=== PATIENT | male | born 1990 | race Caucasian/White ===

== ENCOUNTER 2021-01-14 19:22 | Emergency (ER) | payer MEDICAID, OTHER ==
[~2021-01-14] VITALS: Ht 182.9 cm; Wt 108.9 kg
[2021-01-14] MEDS ORDERED: PANTOPRAZOLE 40 MG/10 ML VIAL INJ IV STA (20:29)
[2021-01-14] MEDS ORDERED: ONDANSETRON HCL 4 MG/2 ML VIAL IV ONE ×2 (20:30)
[2021-01-14] MEDS ORDERED: KETOROLAC TROMETH 30 MG/ML 1ML VIAL IV ONE ×2 (20:30→23:45)
[2021-01-14 20:36] VITALS: BP 114/67
[2021-01-14 22:26] LABS: Basophils # (auto) 0.1 10 ^3/uL (0-0.2); Basophils % (auto) 0.6 % (0.0-2.0); Eosinophils # (auto) 0.1 10 ^3/uL (0-0.8); Eosinophils % (auto) 0.7 % (0.0-7.0); Hematocrit 44.2 % (41.0-53.0); Hemoglobin 15.4 g/dL (13.5-17.5); Lymphocytes # (auto) 1.3 10 ^3/uL (0.4-5.4); Lymphocytes % (auto) 12.7 % (10.0-50.0); Mean Corpuscular Hemoglobin 30.3 pg (28.0-32.0); Mean Corpuscular Hgb Conc. 34.7 g/dL (32.0-36.0); Mean Corpuscular Volume 87.3 fL (80.0-100.0); Monocytes # (auto) 0.5 10 ^3/uL (0-1.3); Neutrophils # (auto) 8.4 10 ^3/uL (1.6-8.6); Nucleated Red Blood Cells % 0.1 %; Platelet Count (auto) 270 10^3/uL (140-450); Red Blood Cells 5.06 10^6/uL (4.5-5.90); Red Cell Distribution Width 13.2 % (11.8-14.3); White Blood Cell 10.4 10^3/uL (4.4-10.8)
[2021-01-14 22:48] LABS: Potassium 4.3 mmol/L (3.5-5.1)
[2021-01-14 22:57] LABS: Albumin 3.9 g/dL (3.4-5.0); BUN/Creatinine Ratio 25.6; Bilirubin, Total 0.8 mg/dL (0.2-1.0); Calcium 9.2 mg/dL (8.5-10.1); Total Protein 7.8 g/dL (6.4-8.2)
[2021-01-15] MEDS ORDERED: PROMETHAZINE HCL 25 MG/ML 1ML ONE (00:22)
[2021-01-15] MEDS ORDERED: PROMETHAZINE HCL 25 MG/ML 1ML IM ONE (00:30)
[2021-01-15 01:00] LABS: Alcohol, Urine < 3.0 mg/dL (0-10); Amphetamine Screen, Urine NEGATIVE (NEGATIVE); Barbiturate Scree,Urine NEGATIVE (NEGATIVE); Benzodiazephine Screen, Urine NEGATIVE (NEGATIVE); Cannabinoid Screen, Urine POSITIVE (NEGATIVE); Cocaine Screen, Urine NEGATIVE (NEGATIVE); Opiate Scree,Urine NEGATIVE (NEGATIVE); Phencyclidine Screen, Urine NEGATIVE (NEGATIVE); Urine Bacteria FEW /hpf (None Seen); Urine Blood Negative /uL (Negative); Urine Mucus MODERATE (None Seen); Urine Specific Gravity 1.043 (1.001-1.035); Urine WBC 3 /hpf (0 - 3)
== END 2021-01-15 00:36 | disposition left against medical advice (07) ==
LOC: ER 19:22 → EDBD 19:22 → ER 01-15 00:36
DX: R10.9 Unspecified abdominal pain (principal); R42 Dizziness and giddiness; R11.10 Vomiting, unspecified
CPT/HCPCS: 36415; 74176; 80053; 80307; 81001; 82150; 83690; 85025; 96372; 96374; 96375; 99284; C9113; J1885; J2405; J2550; J7030

== ENCOUNTER 2022-03-31 02:33 | Inpatient (IN) | payer MEDICAID ==
[~2022-03-31] VITALS: Ht 172.7 cm; Wt 172.0 kg
[2022-03-31] MEDS ORDERED: METOCLOPRAMIDE HCL 5MG/ml INJ 2ml VIAL IV ONE (03:45)
[2022-03-31 04:12] LABS: Basophils # (auto) 0 10 ^3/uL (0-0.2); Basophils % (auto) 0.4 % (0.0-2.0); Eosinophils # (auto) 0 10 ^3/uL (0-0.8); Hemoglobin 14.1 g/dL (13.5-17.5); Lymphocytes # (auto) 0.6 10 ^3/uL (0.4-5.4); Lymphocytes % (auto) 5.3 % (10.0-50.0); Mean Corpuscular Hemoglobin 30.4 pg (28.0-32.0); Mean Corpuscular Hgb Conc. 35.4 g/dL (32.0-36.0); Mean Corpuscular Volume 85.8 fL (80.0-100.0); Monocytes # (auto) 0.2 10 ^3/uL (0-1.3); Monocytes % (auto) 1.8 % (0.0-12.0); Neutrophils # (auto) 10.7 10 ^3/uL (1.6-8.6); Neutrophils % (auto) 92.5 % (37.0-80.0); Nucleated Red Blood Cells % 0.1 %; Red Blood Cells 4.66 10^6/uL (4.5-5.90); Red Cell Distribution Width 13.3 % (11.8-14.3); White Blood Cell 11.6 10^3/uL (4.4-10.8)
[2022-03-31 04:27] LABS: BUN/Creatinine Ratio 12.9; Calcium 9.4 mg/dL (8.5-10.1); Potassium 3.7 mmol/L (3.5-5.1)
[2022-03-31 04:29] LABS: Bilirubin, Total 1.1 mg/dL (0.2-1.0); Total Protein 7.7 g/dL (6.4-8.2)
[2022-03-31] MEDS ORDERED: SODIUM CHLORIDE 0.9% 1,000 ML IV ONE ×2 (07:00)
[2022-03-31] MEDS ORDERED: MORPHINE SULFATE 4 MG/ML SYR/VIAL IV ONE (07:00)
[2022-03-31] MEDS ORDERED: ONDANSETRON HCL 4 MG/2 ML VIAL IV ONE (07:00)
[2022-03-31 07:46] LABS: Urine Bacteria NONE SEEN /hpf (None Seen); Urine Blood Negative /uL (Negative); Urine Hyaline Cast FEW /lpf (0 - 2); Urine Mucus MODERATE (None Seen); Urine Specific Gravity 1.038 (1.001-1.035); Urine WBC 2 /hpf (0 - 3)
[2022-03-31] MEDS ORDERED: PANTOPRAZOLE 40 MG/10 ML VIAL INJ IV ONE (10:30)
[2022-03-31] MEDS ORDERED: NICOTINE 7MG/24HR TOPICAL PATCH TD ONE (10:30)
[2022-03-31] MEDS ORDERED: cefTRIAXone 1GM/50ML D5W 50 ML IV ONE (10:30)
[2022-03-31] MEDS ORDERED: hydrALAZINE HCL 20 MG/ML VL IV PRN (10:30)
[2022-03-31 11:19] LABS: Amphetamine Screen, Urine NEGATIVE (NEGATIVE); Barbiturate Scree,Urine NEGATIVE (NEGATIVE); Benzodiazephine Screen, Urine NEGATIVE (NEGATIVE); Cannabinoid Screen, Urine POSITIVE (NEGATIVE); Cocaine Screen, Urine NEGATIVE (NEGATIVE); Phencyclidine Screen, Urine NEGATIVE (NEGATIVE)
[2022-03-31 11:26] LABS: Opiate Scree,Urine NEGATIVE (NEGATIVE)
[2022-03-31 11:48] LABS: Cholesterol 125 mg/dL (< 200); HDL Cholesterol 35 mg/dL (40-59); LDL Cholesterol 87 mg/dL (< 100); Triglycerides 47 mg/dL (< 150)
[2022-03-31] MEDS: SODIUM CHLORIDE 0.9% 1,000 ML IV SCH ×2 (11:49→18:50)
[2022-03-31] MEDS: ONDANSETRON HCL 4 MG/2 ML VIAL IV PRN (12:10)
[2022-03-31] MEDS: metroNIDAZOLE 500MG/100ML 100 ML IV SCH ×2 (15:43→21:18)
[2022-03-31 17:00] VITALS: BP 123/51
[2022-03-31] MEDS ORDERED: DICY20TA PO (17:45)
[2022-03-31] MEDS ORDERED: PANT40T PO (17:45)
[2022-03-31 20:00] VITALS: BP 108/55
[2022-03-31 22:00] VITALS: BP 108/55
[2022-04-01] MEDS: SODIUM CHLORIDE 0.9% 1,000 ML IV SCH ×3 (02:11→16:24)
[2022-04-01] MEDS: ONDANSETRON HCL 4 MG/2 ML VIAL IV PRN ×3 (03:56→19:07)
[2022-04-01] MEDS: MORPHINE SULFATE INJ 2 MG/ml SYRG IV PRN (03:56)
[2022-04-01 05:00] VITALS: BP 110/60
[2022-04-01] MEDS: metroNIDAZOLE 500MG/100ML 100 ML IV SCH (05:23)
[2022-04-01] MEDS: SUCRALFATE 1 GM TAB PO SCH ×4 (05:24→22:51)
[2022-04-01] MEDS ORDERED: KETOROLAC TROMETH 30 MG/ML 1ML VIAL IV ONE (06:00)
[2022-04-01] MEDS ORDERED: PROMETHAZINE HCL 25 MG/ML 1ML IV ONE (06:00)
[2022-04-01 07:05] LABS: Basophils # (auto) 0 10 ^3/uL (0-0.2); Basophils % (auto) 0.3 % (0.0-2.0); Eosinophils # (auto) 0 10 ^3/uL (0-0.8); Eosinophils % (auto) 0.2 % (0.0-7.0); Hematocrit 38.6 % (41.0-53.0); Hemoglobin 13.6 g/dL (13.5-17.5); Lymphocytes # (auto) 1.1 10 ^3/uL (0.4-5.4); Mean Corpuscular Hemoglobin 30.5 pg (28.0-32.0); Mean Corpuscular Hgb Conc. 35.1 g/dL (32.0-36.0); Mean Corpuscular Volume 86.9 fL (80.0-100.0); Monocytes # (auto) 0.5 10 ^3/uL (0-1.3); Monocytes % (auto) 6.5 % (0.0-12.0); Neutrophils # (auto) 6.2 10 ^3/uL (1.6-8.6); Nucleated Red Blood Cells % 0.1 %; Red Blood Cells 4.44 10^6/uL (4.5-5.90); Red Cell Distribution Width 13.6 % (11.8-14.3); White Blood Cell 7.9 10^3/uL (4.4-10.8)
[2022-04-01 07:17] LABS: Albumin 3.7 g/dL (3.4-5.0); Calcium 8.6 mg/dL (8.5-10.1); Potassium 3.4 mmol/L (3.5-5.1)
[2022-04-01 07:19] LABS: BUN/Creatinine Ratio 13.3
[2022-04-01 08:26] VITALS: BP 108/55
[2022-04-01] MEDS ORDERED: cefTRIAXone 1GM/50ML D5W 50 ML IV SCH (09:00)
[2022-04-01 09:22] VITALS: BP 141/73
[2022-04-01] MEDS: NICOTINE 7MG/24HR TOPICAL PATCH TD SCH (09:55)
[2022-04-01] MEDS: PANTOPRAZOLE 40 MG/10 ML VIAL INJ IV SCH (09:55)
[2022-04-01] MEDS ORDERED: traMADol HCL 50 MG TAB PO PRN (12:30)
[2022-04-01] MEDS ORDERED: POTASSIUM CHLORIDE 20 MEQ, LIDOCAINE 1% (LOCAL ANESTH.) 2 ML in SODIUM CHL 0.9% 100 ML IV ONE (12:45)
[2022-04-01 13:00] VITALS: BP 152/81
[2022-04-01 17:00] VITALS: BP 144/96
[2022-04-01 22:00] VITALS: BP 111/66
[2022-04-01] MEDS: METOCLOPRAMIDE HCL 5MG/ml INJ 2ml VIAL IV PRN (22:42)
[2022-04-02 01:53] LABS: Calcium 8.5 mg/dL (8.5-10.1); Magnesium 2.2 mg/dL (1.6-2.6); Potassium 3.9 mmol/L (3.5-5.1)
[2022-04-02 01:56] LABS: BUN/Creatinine Ratio 12.5
[2022-04-02] MEDS: SODIUM CHLORIDE 0.9% 1,000 ML IV SCH ×2 (03:30→17:28)
[2022-04-02] MEDS: ONDANSETRON HCL 4 MG/2 ML VIAL IV PRN ×3 (04:29→20:48)
[2022-04-02] MEDS: MORPHINE SULFATE INJ 2 MG/ml SYRG IV PRN ×3 (04:56→20:56)
[2022-04-02] MEDS: SUCRALFATE 1 GM TAB PO SCH ×4 (06:15→20:52)
[2022-04-02 07:09] LABS: BUN/Creatinine Ratio 12.3; Calcium 8.3 mg/dL (8.5-10.1); Potassium 3.5 mmol/L (3.5-5.1)
[2022-04-02 07:30] LABS: INR 1.12 (0.9-1.15); Partial Thromboplastin Time 26.6 sec (23.6-33.0)
[2022-04-02] MEDS: PANTOPRAZOLE 40 MG/10 ML VIAL INJ IV SCH (08:00)
[2022-04-02] MEDS: METOCLOPRAMIDE HCL 5MG/ml INJ 2ml VIAL IV PRN (08:00)
[2022-04-02] MEDS: NICOTINE 7MG/24HR TOPICAL PATCH TD SCH (08:04)
[2022-04-02] MEDS ORDERED: OPTISON 3ml Vial for INJ IV ONE (13:32)
[2022-04-02 21:11] VITALS: BP 141/86
[2022-04-03] MEDS: SODIUM CHLORIDE 0.9% 1,000 ML IV SCH ×2 (04:30→17:47)
[2022-04-03 05:00] VITALS: BP 134/81
[2022-04-03] MEDS: SUCRALFATE 1 GM TAB PO SCH ×4 (05:16→21:16)
[2022-04-03] MEDS: PANTOPRAZOLE 40 MG/10 ML VIAL INJ IV SCH (09:22)
[2022-04-03] MEDS: ONDANSETRON HCL 4 MG/2 ML VIAL IV PRN ×2 (09:22→17:58)
[2022-04-03] MEDS: NICOTINE 7MG/24HR TOPICAL PATCH TD SCH (09:23)
[2022-04-03] MEDS ORDERED: SODIUM CHLORIDE LOCK 10 ML ONE (11:59)
[2022-04-03] MEDS ORDERED: MIDAZOLAM HCL 5 MG/ML-1ML VIAL ONE (11:59)
[2022-04-03] MEDS ORDERED: LIDOCAINE VISCOUS 2% 15ML UD ONE (11:59)
[2022-04-03] MEDS ORDERED: diphenhdrAMINE HCL 50 MG/1 ML VL ONE (11:59)
[2022-04-03] MEDS ORDERED: fentaNYL CITRATE 100 MCG/2 ML VL ONE ×2 (11:59→13:13)
[2022-04-03] MEDS ORDERED: MIDAZOLAM HCL 2MG/2ML 2ml VIAL (1mg/ml) ONE (13:13)
[2022-04-03] MEDS ORDERED: PROPOFOL 10 MG/ML 20 ML IV ONE (13:30)
[2022-04-03] MEDS ORDERED: ONDANSETRON HCL 4 MG/2 ML VIAL IV PRN (13:45)
[2022-04-03] MEDS: PANTOPRAZOLE 40 MG TAB PO SCH (21:16)
[2022-04-03 21:41] VITALS: BP 155/75
[2022-04-04 05:00] VITALS: BP 118/52
[2022-04-04] MEDS: SUCRALFATE 1 GM TAB PO SCH ×2 (06:29→11:24)
[2022-04-04 08:58] VITALS: BP 114/50
[2022-04-04] MEDS: NICOTINE 7MG/24HR TOPICAL PATCH TD SCH (09:23)
[2022-04-04] MEDS: PANTOPRAZOLE 40 MG TAB PO SCH (09:24)
[2022-04-04] MEDS: SODIUM CHLORIDE 0.9% 1,000 ML IV SCH (09:24)
[2022-04-04 12:54] VITALS: BP 136/83
[2022-04-04] MEDS ORDERED: PANT40T PO (14:16)
[2022-04-04] MEDS ORDERED: SUCR1TAB PO (14:16)
[2022-04-04 15:04] VITALS: BP 136/83
== END 2022-04-04 16:47 | disposition home or self-care (01) | DRG 241 ==
LOC: ER 02:33 → EDBD 02:33 → WEST WING 10:20 → TELE-WESTW 04-02 01:00
PROVIDERS: ADMIT Registered Nurse; ATTEND Internal Medicine
PROC: 0DB68ZX Excision of Stomach, Via Natural or Artificial Opening Endoscopic, Diagnostic (ICD-10-PCS; 2022-04-03)
PROC: 0DB38ZX Excision of Lower Esophagus, Via Natural or Artificial Opening Endoscopic, Diagnostic (ICD-10-PCS; 2022-04-03)
PROC: 0DB98ZX Excision of Duodenum, Via Natural or Artificial Opening Endoscopic, Diagnostic (ICD-10-PCS; principal; 2022-04-03 13:09)
DX: K29.70 Gastritis, unspecified, without bleeding (principal); K76.0 Fatty (change of) liver, not elsewhere classified; Z68.43 Body mass index [BMI] 50.0-59.9, adult; K22.10 Ulcer of esophagus without bleeding; D72.829 Elevated white blood cell count, unspecified; F12.90 Cannabis use, unspecified, uncomplicated; E66.01 Morbid (severe) obesity due to excess calories; F17.210 Nicotine dependence, cigarettes, uncomplicated; F41.9 Anxiety disorder, unspecified; I10 Essential (primary) hypertension; K44.9 Diaphragmatic hernia without obstruction or gangrene; K21.9 Gastro-esophageal reflux disease without esophagitis; R00.1 Bradycardia, unspecified; R80.9 Proteinuria, unspecified; Z20.822 Contact with and (suspected) exposure to COVID-19
CPT/HCPCS: 36415; 74176; 76705; 78226; 80048; 80053; 80061; 80307; 81001; 82962; 83036; 83690; 83735; 84484; 85025; 85610; 85730; 93005; 93306; 96361; 96365; 96375; 96376; C9113; G0378; J0696; J1885; J2001; J2250; J2405; J2704; J3490; Q9956

== ENCOUNTER 2022-04-16 13:31 | Emergency (ER) | payer MEDICAID ==
[~2022-04-16] VITALS: Ht 172.7 cm; Wt 170.6 kg
[~2022-04-16 13:31] MED LIST: DICY20TA PO; PANT40T PO; SUCR1TAB PO
[2022-04-16 14:19] LABS: Urine Bacteria NONE SEEN /hpf (None Seen); Urine Blood Negative /uL (Negative); Urine Hyaline Cast FEW /lpf (0 - 2); Urine Mucus FEW (None Seen); Urine Specific Gravity 1.033 (1.001-1.035); Urine WBC 1 /hpf (0 - 3)
[2022-04-16 14:55] LABS: Basophils # (auto) 0.2 10 ^3/uL (0-0.2); Basophils % (auto) 2.2 % (0.0-2.0); Eosinophils # (auto) 0 10 ^3/uL (0-0.8); Eosinophils % (auto) 0.5 % (0.0-7.0); Hematocrit 40.9 % (41.0-53.0); Hemoglobin 14.3 g/dL (13.5-17.5); Lymphocytes # (auto) 0.6 10 ^3/uL (0.4-5.4); Lymphocytes % (auto) 6.1 % (10.0-50.0); Mean Corpuscular Hemoglobin 30.3 pg (28.0-32.0); Mean Corpuscular Hgb Conc. 34.8 g/dL (32.0-36.0); Mean Corpuscular Volume 86.8 fL (80.0-100.0); Monocytes # (auto) 0.4 10 ^3/uL (0-1.3); Monocytes % (auto) 4.6 % (0.0-12.0); Neutrophils % (auto) 86.6 % (37.0-80.0); Nucleated Red Blood Cells % 0.3 %; Red Blood Cells 4.71 10^6/uL (4.5-5.90); Red Cell Distribution Width 13.3 % (11.8-14.3); White Blood Cell 9.2 10^3/uL (4.4-10.8)
[2022-04-16 15:10] LABS: Albumin 3.9 g/dL (3.4-5.0); Calcium 8.6 mg/dL (8.5-10.1); Potassium 3.9 mmol/L (3.5-5.1)
[2022-04-16 15:13] LABS: BUN/Creatinine Ratio 21.1
[2022-04-16 15:16] LABS: Bilirubin, Total 0.7 mg/dL (0.2-1.0); Total Protein 7.1 g/dL (6.4-8.2)
[2022-04-16] MEDS ORDERED: ONDANSETRON ODT 4 MG TAB PO ONE (16:15)
[2022-04-16] MEDS ORDERED: HYDROcodone-ACET 5/325MG TAB PO ONE (16:15)
[2022-04-16 17:19] VITALS: BP 126/76
== END 2022-04-16 17:21 | disposition home or self-care (01) ==
LOC: ER 13:31
DX: K42.9 Umbilical hernia without obstruction or gangrene (principal); R11.2 Nausea with vomiting, unspecified; F17.210 Nicotine dependence, cigarettes, uncomplicated; I10 Essential (primary) hypertension
CPT/HCPCS: 36415; 74176; 80053; 81001; 83690; 85025; 93005; 99285; Q0162

== ENCOUNTER 2022-04-23 13:38 | Emergency (ER) | payer MEDICAID ==
[~2022-04-23] VITALS: Ht 172.7 cm; Wt 163.3 kg
[2022-04-23 14:44] LABS: Basophils # (auto) 0.2 10 ^3/uL (0-0.2); Basophils % (auto) 1.7 % (0.0-2.0); Eosinophils # (auto) 0.1 10 ^3/uL (0-0.8); Eosinophils % (auto) 0.6 % (0.0-7.0); Hematocrit 39.9 % (41.0-53.0); Hemoglobin 14.1 g/dL (13.5-17.5); Lymphocytes # (auto) 0.8 10 ^3/uL (0.4-5.4); Lymphocytes % (auto) 8.8 % (10.0-50.0); Mean Corpuscular Hemoglobin 30.6 pg (28.0-32.0); Mean Corpuscular Hgb Conc. 35.3 g/dL (32.0-36.0); Mean Corpuscular Volume 86.8 fL (80.0-100.0); Monocytes # (auto) 0.4 10 ^3/uL (0-1.3); Neutrophils # (auto) 7.6 10 ^3/uL (1.6-8.6); Neutrophils % (auto) 84.9 % (37.0-80.0); Red Cell Distribution Width 13.4 % (11.8-14.3)
[2022-04-23 15:11] LABS: Albumin 3.5 g/dL (3.4-5.0); BUN/Creatinine Ratio 20.3; Bilirubin, Total 0.5 mg/dL (0.2-1.0); Calcium 8.6 mg/dL (8.5-10.1); Total Protein 7.1 g/dL (6.4-8.2)
[2022-04-23] MEDS ORDERED: SODIUM CHLORIDE 0.9% 1,000 ML IV ONE (17:30)
[2022-04-23 21:09] VITALS: BP 124/68
== END 2022-04-23 22:38 | disposition left against medical advice (07) ==
LOC: EDBD 13:38 → ER 13:38
DX: R10.13 Epigastric pain (principal); I10 Essential (primary) hypertension; F17.210 Nicotine dependence, cigarettes, uncomplicated; Z79.899 Other long term (current) drug therapy
CPT/HCPCS: 36415; 71045; 80053; 83690; 84484; 85025; 93005; 99285; J7030

== ENCOUNTER 2022-04-25 16:55 | Inpatient (IN) | payer MEDICAID ==
[~2022-04-25] VITALS: Ht 177.8 cm; Wt 171.0 kg
[2022-04-25] MEDS ORDERED: SODIUM CHLORIDE 0.9% 1,000 ML IV ONE (17:15)
[2022-04-25] MEDS ORDERED: fentaNYL CITRATE 100 MCG/2 ML VL IV ONE ×2 (17:15→19:30)
[2022-04-25] MEDS ORDERED: ONDANSETRON HCL 4 MG/2 ML VIAL IV ONE (17:15)
[2022-04-25 17:51] LABS: Basophils # (auto) 0.2 10 ^3/uL (0-0.2); Eosinophils # (auto) 0.1 10 ^3/uL (0-0.8); Eosinophils % (auto) 0.6 % (0.0-7.0); Hematocrit 40.7 % (41.0-53.0); Lymphocytes % (auto) 8.5 % (10.0-50.0); Mean Corpuscular Hgb Conc. 34.5 g/dL (32.0-36.0); Mean Corpuscular Volume 86.9 fL (80.0-100.0); Monocytes # (auto) 0.5 10 ^3/uL (0-1.3); Monocytes % (auto) 4.6 % (0.0-12.0); Neutrophils # (auto) 9.5 10 ^3/uL (1.6-8.6); Neutrophils % (auto) 84.3 % (37.0-80.0); Red Blood Cells 4.68 10^6/uL (4.5-5.90); Red Cell Distribution Width 13.5 % (11.8-14.3); White Blood Cell 11.3 10^3/uL (4.4-10.8)
[2022-04-25 18:16] LABS: Albumin 3.8 g/dL (3.4-5.0); BUN/Creatinine Ratio 15.2; Calcium 8.3 mg/dL (8.5-10.1); Potassium 3.4 mmol/L (3.5-5.1)
[2022-04-25 18:19] LABS: Bilirubin, Total 0.6 mg/dL (0.2-1.0); Total Protein 7.2 g/dL (6.4-8.2)
[2022-04-25] MEDS ORDERED: METOCLOPRAMIDE HCL 5MG/ml INJ 2ml VIAL IV ONE ×2 (19:30→23:45)
[2022-04-25 21:12] LABS: Urine Bacteria NONE SEEN /hpf (None Seen); Urine Blood Negative /uL (Negative); Urine Mucus FEW (None Seen); Urine Specific Gravity 1.028 (1.001-1.035); Urine WBC 2 /hpf (0 - 3)
[2022-04-25] MEDS ORDERED: cefTRIAXone 1GM/50ML D5W 50 ML IV ONE (22:15)
[2022-04-25] MEDS ORDERED: ACETAMINOPHEN 325 MG TAB PO PRN (22:15)
[2022-04-25] MEDS ORDERED: hydrALAZINE HCL 20 MG/ML VL IV PRN (22:15)
[2022-04-25] MEDS ORDERED: ONDANSETRON HCL 4 MG/2 ML VIAL IV PRN (22:15)
[2022-04-25] MEDS ORDERED: POTASSIUM CHL 20 Meq TABLET PO ONE (22:15)
[2022-04-25] MEDS ORDERED: DOCUSATE SOD 100 MG CAP PO PRN (22:15)
[2022-04-25] MEDS ORDERED: HYDROcodone-ACET 5/325MG TAB PO PRN (22:15)
[2022-04-25] MEDS ORDERED: FUROSEMIDE 40 MG/4 ML VIAL IV ONE (22:15)
[2022-04-25] MEDS ORDERED: MORPHINE SULFATE INJ 2 MG/ml SYRG IV PRN (22:30)
[2022-04-25] MEDS ORDERED: NITROGLYCERIN 0.4 MG SL TAB SL PRN (22:30)
[2022-04-25] MEDS: MORPHINE SULFATE INJ 2 MG/ml SYRG IV PRN (23:27)
[2022-04-26] VITALS (7 sets, daily range): BP systolic 107–139; BP diastolic 47–98
[2022-04-26] MEDS ORDERED: LORazepam 2MG/ML-1ML VIAL IV PRN (01:45)
[2022-04-26] MEDS: MORPHINE SULFATE INJ 2 MG/ml SYRG IV PRN (03:44)
[2022-04-26] MEDS: SODIUM CHLOR 0.9% PF (SALINE LOCK) 10ML VIAL/SYR IV SCH ×3 (04:31→21:37)
[2022-04-26 07:53] LABS: Hematocrit 41.6 % (41.0-53.0); Hemoglobin 14.3 g/dL (13.5-17.5); Mean Corpuscular Hemoglobin 30.2 pg (28.0-32.0); Mean Corpuscular Hgb Conc. 34.5 g/dL (32.0-36.0); Mean Corpuscular Volume 87.5 fL (80.0-100.0); Red Blood Cells 4.75 10^6/uL (4.5-5.90); Red Cell Distribution Width 13.4 % (11.8-14.3); White Blood Cell 12.6 10^3/uL (4.4-10.8)
[2022-04-26 08:00] LABS: Basophils % (manual) 0 (0.0-2.0); Blast Cells 0; Eosinophils % (manual) 0 (0-7); Metamyelocytes % 0; Myelocytes % 0; Promyelocytes % 0; Reactive Lymphocytes 0
[2022-04-26 08:11] LABS: Albumin 3.8 g/dL (3.4-5.0); Calcium 8.5 mg/dL (8.5-10.1); Potassium 3.5 mmol/L (3.5-5.1)
[2022-04-26 08:17] LABS: BUN/Creatinine Ratio 13.8; Bilirubin, Total 0.6 mg/dL (0.2-1.0); Total Protein 7.8 g/dL (6.4-8.2)
[2022-04-26 08:44] LABS: Band Neutrophils % (manual) 2; Lymphocytes % (manual) 8 (10.0-50.0); Monocytes % (manual) 2 (0-12)
[2022-04-26] MEDS: FUROSEMIDE 40 MG/4 ML VIAL IV SCH (09:19)
[2022-04-26] MEDS: PANTOPRAZOLE 40 MG/10 ML VIAL INJ IV SCH ×2 (09:19→21:37)
[2022-04-26] MEDS: cefTRIAXone 1GM/50ML D5W 50 ML IV SCH (09:25)
[2022-04-26] MEDS: HEPARIN SODIUM (PORCINE) 5000 UNITS/ML 1ML VIAL SC SCH ×2 (09:32→21:46)
[2022-04-26 12:26] LABS: Alcohol, Urine < 3.0 mg/dL (0-10); Amphetamine Screen, Urine NEGATIVE (NEGATIVE); Barbiturate Scree,Urine NEGATIVE (NEGATIVE); Benzodiazephine Screen, Urine NEGATIVE (NEGATIVE); Cannabinoid Screen, Urine POSITIVE (NEGATIVE); Cocaine Screen, Urine NEGATIVE (NEGATIVE); Opiate Scree,Urine NEGATIVE (NEGATIVE); Phencyclidine Screen, Urine NEGATIVE (NEGATIVE)
[2022-04-26] MEDS: SUCRALFATE 1 GM TAB PO SCH ×2 (17:02→21:37)
[2022-04-27 05:00] VITALS: BP 122/61
[2022-04-27] MEDS: SUCRALFATE 1 GM TAB PO SCH ×2 (05:49→12:13)
[2022-04-27] MEDS: SODIUM CHLOR 0.9% PF (SALINE LOCK) 10ML VIAL/SYR IV SCH (05:49)
[2022-04-27 09:00] VITALS: BP 123/62
[2022-04-27] MEDS: cefTRIAXone 1GM/50ML D5W 50 ML IV SCH (09:05)
[2022-04-27] MEDS: PANTOPRAZOLE 40 MG/10 ML VIAL INJ IV SCH (09:06)
[2022-04-27] MEDS: FUROSEMIDE 40 MG/4 ML VIAL IV SCH (09:06)
[2022-04-27] MEDS: HEPARIN SODIUM (PORCINE) 5000 UNITS/ML 1ML VIAL SC SCH (09:11)
[2022-04-27 11:39] VITALS: BP 123/62
== END 2022-04-27 12:56 | disposition home or self-care (01) | DRG 243 ==
LOC: ER 16:55 → EDBD 16:55 → OVERFLOW 22:20 → WEST WING 04-26 02:12
PROVIDERS: ADMIT Nurse Practitioner Family; ATTEND Family Medicine
DX: K20.90 Esophagitis, unspecified without bleeding (principal); K76.0 Fatty (change of) liver, not elsewhere classified; Z68.43 Body mass index [BMI] 50.0-59.9, adult; K21.9 Gastro-esophageal reflux disease without esophagitis; K31.84 Gastroparesis; D72.829 Elevated white blood cell count, unspecified; N39.0 Urinary tract infection, site not specified; E66.01 Morbid (severe) obesity due to excess calories; E87.6 Hypokalemia; I10 Essential (primary) hypertension; E86.0 Dehydration; F17.210 Nicotine dependence, cigarettes, uncomplicated; F41.9 Anxiety disorder, unspecified; R09.89 Other specified symptoms and signs involving the circulatory and respiratory systems; Z20.822 Contact with and (suspected) exposure to COVID-19
CPT/HCPCS: 36415; 71045; 74176; 80053; 80307; 81001; 82150; 83690; 83735; 84484; 85007; 85025; 85027; 87081; 87086; 93005; 96361; 96365; 96375; 96376; C9113; G0378; J0696; J2405

== ENCOUNTER 2022-05-21 05:14 | Inpatient (IN) | payer MEDICAID ==
[~2022-05-21] VITALS: Ht 180.3 cm; Wt 171.8 kg
[2022-05-21] MEDS ORDERED: METOCLOPRAMIDE HCL 5MG/ml INJ 2ml VIAL IV ONE (06:45)
[2022-05-21 06:53] LABS: Basophils # (auto) 0.1 10 ^3/uL (0-0.2); Basophils % (auto) 0.7 % (0.0-2.0); Eosinophils # (auto) 0.1 10 ^3/uL (0-0.8); Eosinophils % (auto) 0.7 % (0.0-7.0); Hemoglobin 15.4 g/dL (13.5-17.5); Mean Corpuscular Hemoglobin 30.8 pg (28.0-32.0); Mean Corpuscular Hgb Conc. 35.7 g/dL (32.0-36.0); Mean Corpuscular Volume 86.3 fL (80.0-100.0); Monocytes # (auto) 0.5 10 ^3/uL (0-1.3); Monocytes % (auto) 4.8 % (0.0-12.0); Neutrophils # (auto) 7.9 10 ^3/uL (1.6-8.6); Neutrophils % (auto) 82.8 % (37.0-80.0); Nucleated Red Blood Cells % 0.2 %; Red Blood Cells 4.98 10^6/uL (4.5-5.90); Red Cell Distribution Width 13.3 % (11.8-14.3); White Blood Cell 9.5 10^3/uL (4.4-10.8)
[2022-05-21 07:04] LABS: Albumin 4.1 g/dL (3.4-5.0); BUN/Creatinine Ratio 14.6; Calcium 9.1 mg/dL (8.5-10.1)
[2022-05-21 07:07] LABS: Bilirubin, Total 0.8 mg/dL (0.2-1.0); Total Protein 7.7 g/dL (6.4-8.2)
[2022-05-21] MEDS ORDERED: ONDANSETRON HCL 4 MG/2 ML VIAL IV ONE (09:45)
[2022-05-21] MEDS ORDERED: SODIUM CHLORIDE 0.9% 1,000 ML IV ONE (09:45)
[2022-05-21] MEDS ORDERED: MORPHINE SULFATE 4 MG/ML SYR/VIAL IV ONE (09:45)
[2022-05-21] MEDS ORDERED: LACTATED RINGER'S 1,000 ML IV ONE (11:00)
[2022-05-21] MEDS ORDERED: DEXTROSE (50%) 50ML SYRG IV PRN (11:00)
[2022-05-21] MEDS ORDERED: ACETAMINOPHEN 325 MG TAB PO PRN (11:00)
[2022-05-21] MEDS ORDERED: ONDANSETRON HCL 4 MG/2 ML VIAL IV PRN (11:00)
[2022-05-21] MEDS ORDERED: HYDROmorphone HCL 2 MG/ML VL/or syr IV PRN (11:00)
[2022-05-21] MEDS ORDERED: DOCUSATE SOD 100 MG CAP PO PRN (11:00)
[2022-05-21] MEDS: PIPERACILLIN-TAZOB 3.375GM 100 ML IV SCH ×3 (11:18→23:00)
[2022-05-21] MEDS ORDERED: DICYCLOMINE HCL PO SCH (12:00)
[2022-05-21] MEDS: SUCRALFATE 1 GM TAB PO SCH ×3 (12:22→21:13)
[2022-05-21] MEDS: DICYCLOMINE HCL 10 MG CAP PO SCH ×3 (12:25→21:13)
[2022-05-21] MEDS: ACCU-CHEK COMFORT CURVE STRIP VI SCH ×3 (12:33→23:37)
[2022-05-21] MEDS: InsuLIN REG 1unit/0.01ml Soln (100units/ml) SC SCH ×3 (12:33→23:38)
[2022-05-21] MEDS: SODIUM CHLOR 0.9% PF (SALINE LOCK) 10ML VIAL/SYR IV SCH ×2 (14:00→21:12)
[2022-05-21 18:30] VITALS: BP 125/59
[2022-05-21 21:32] VITALS: BP 131/70
[2022-05-21 22:07] VITALS: BP 131/70
[2022-05-22 04:33] VITALS: BP 104/40
[2022-05-22] MEDS: ACCU-CHEK COMFORT CURVE STRIP VI SCH ×2 (05:16→12:04)
[2022-05-22] MEDS: PIPERACILLIN-TAZOB 3.375GM 100 ML IV SCH ×4 (05:16→23:21)
[2022-05-22] MEDS: InsuLIN REG 1unit/0.01ml Soln (100units/ml) SC SCH ×2 (05:16→12:00)
[2022-05-22 09:00] VITALS: BP 131/72
[2022-05-22] MEDS: SUCRALFATE 1 GM TAB PO SCH ×4 (09:31→21:52)
[2022-05-22] MEDS: ENOXAPARIN SOD 40 MG/0.4 ML SYRINGE SC SCH (09:31)
[2022-05-22] MEDS ORDERED: PANTOPRAZOLE 40 MG TAB PO SCH (10:00)
[2022-05-22] MEDS: DICYCLOMINE HCL 10 MG CAP PO SCH ×3 (11:36→21:50)
[2022-05-22] MEDS: SODIUM CHLOR 0.9% PF (SALINE LOCK) 10ML VIAL/SYR IV SCH ×3 (12:04→21:50)
[2022-05-22 13:00] VITALS: BP 144/64
[2022-05-22] MEDS ORDERED: NICOTINE 21MG/24 HR TOPICAL PATCH TD ONE (15:45)
[2022-05-22 17:00] VITALS: BP 133/77
[2022-05-22] MEDS: HYDROcodone-ACET 5/325MG TAB PO PRN (20:04)
[2022-05-22 21:30] VITALS: BP 143/74
[2022-05-22] MEDS: PANTOPRAZOLE 40 MG/10 ML VIAL INJ IV SCH (21:50)
[2022-05-23 05:00] VITALS: BP 118/62
[2022-05-23] MEDS: PIPERACILLIN-TAZOB 3.375GM 100 ML IV SCH ×3 (05:45→10:04)
[2022-05-23] MEDS: DICYCLOMINE HCL 10 MG CAP PO SCH ×2 (06:00→11:08)
[2022-05-23] MEDS: SODIUM CHLOR 0.9% PF (SALINE LOCK) 10ML VIAL/SYR IV SCH ×2 (06:00→13:24)
[2022-05-23] MEDS: SUCRALFATE 1 GM TAB PO SCH ×2 (06:35→11:08)
[2022-05-23 07:28] LABS: Magnesium 2.1 mg/dL (1.6-2.6); Potassium 4.4 mmol/L (3.5-5.1)
[2022-05-23] MEDS: PANTOPRAZOLE 40 MG/10 ML VIAL INJ IV SCH (08:28)
[2022-05-23] MEDS: ENOXAPARIN SOD 40 MG/0.4 ML SYRINGE SC SCH (08:28)
[2022-05-23] MEDS: HYDROcodone-ACET 5/325MG TAB PO PRN (08:29)
[2022-05-23 09:00] VITALS: BP 132/67
[2022-05-23] MEDS ORDERED: NICOTINE 21MG/24 HR TOPICAL PATCH TD SCH (10:00)
[2022-05-23 13:00] VITALS: BP 121/67
== END 2022-05-23 17:46 | disposition left against medical advice (07) | DRG 720 ==
LOC: EDBD 05:14 → ER 05:14 → OVERFLOW 11:06 → EAST 18:01
PROVIDERS: ADMIT Internal Medicine; ATTEND Internal Medicine
DX: A41.9 Sepsis, unspecified organism (principal); K22.10 Ulcer of esophagus without bleeding; Z68.43 Body mass index [BMI] 50.0-59.9, adult; F17.210 Nicotine dependence, cigarettes, uncomplicated; I10 Essential (primary) hypertension; E66.01 Morbid (severe) obesity due to excess calories; F10.10 Alcohol abuse, uncomplicated; Z20.822 Contact with and (suspected) exposure to COVID-19; Z53.29 Procedure and treatment not carried out because of patient's decision for other reasons; K29.70 Gastritis, unspecified, without bleeding; Z71.6 Tobacco abuse counseling
CPT/HCPCS: 36415; 74176; 76705; 80053; 82150; 82962; 83690; 83735; 84132; 85025; 87040; 87077; 87186; 96361; 96374; 96375; 99291; C9113; G0378; J2405; J2543

== ENCOUNTER 2022-06-05 20:41 | Emergency (ER) | payer MEDICAID ==
[~2022-06-05] VITALS: Ht 172.7 cm; Wt 172.0 kg
[2022-06-05] MEDS ORDERED: OXYCODONE W/ ACETAMINOPHEN 5/325MG TABLET PO ONE (22:30)
[2022-06-05 22:58] LABS: Basophils # (auto) 0.1 10 ^3/uL (0-0.2); Basophils % (auto) 0.6 % (0.0-2.0); Eosinophils # (auto) 0 10 ^3/uL (0-0.8); Eosinophils % (auto) 0.3 % (0.0-7.0); Hematocrit 48.6 % (41.0-53.0); Hemoglobin 16.1 g/dL (13.5-17.5); Lymphocytes # (auto) 1.6 10 ^3/uL (0.4-5.4); Lymphocytes % (auto) 12.9 % (10.0-50.0); Mean Corpuscular Hemoglobin 28.8 pg (28.0-32.0); Mean Corpuscular Hgb Conc. 33.1 g/dL (32.0-36.0); Mean Corpuscular Volume 87.1 fL (80.0-100.0); Monocytes # (auto) 0.9 10 ^3/uL (0-1.3); Monocytes % (auto) 6.9 % (0.0-12.0); Neutrophils # (auto) 10.1 10 ^3/uL (1.6-8.6); Neutrophils % (auto) 79.3 % (37.0-80.0); Nucleated Red Blood Cells % 0.1 %; Red Blood Cells 5.59 10^6/uL (4.5-5.90); Red Cell Distribution Width 13.3 % (11.8-14.3); White Blood Cell 12.7 10^3/uL (4.4-10.8)
[2022-06-05 23:19] LABS: Albumin 4.5 g/dL (3.4-5.0); BUN/Creatinine Ratio 25.8; Calcium 8.9 mg/dL (8.5-10.1); Magnesium 2.5 mg/dL (1.6-2.6); Potassium 3.4 mmol/L (3.5-5.1)
[2022-06-05 23:21] LABS: Bilirubin, Total 1.4 mg/dL (0.2-1.0); Total Protein 8.3 g/dL (6.4-8.2)
[2022-06-06 06:39] LABS: Urine Bacteria NONE SEEN /hpf (None Seen); Urine Blood Negative /uL (Negative); Urine Hyaline Cast FEW /lpf (0 - 2); Urine Mucus FEW (None Seen); Urine Specific Gravity 1.035 (1.001-1.035); Urine WBC 3 /hpf (0 - 3)
[2022-06-06 07:42] VITALS: BP 122/85
[2022-06-06] MEDS ORDERED: KETOROLAC TROMETH 60MG/2ML VIAL IM ONE (08:00)
== END 2022-06-06 08:25 | disposition home or self-care (01) ==
LOC: ER 20:41
DX: R07.89 Other chest pain (principal); F17.210 Nicotine dependence, cigarettes, uncomplicated; I10 Essential (primary) hypertension; F12.10 Cannabis abuse, uncomplicated
CPT/HCPCS: 36415; 71045; 80053; 81001; 82150; 83690; 83735; 83880; 84484; 85025; 93005; 96372; 99285; J1885

== ENCOUNTER 2023-08-03 06:04 | Inpatient (IN) | payer MEDICAID ==
[~2023-08-03] VITALS: Ht 172.7 cm; Wt 165.9 kg
[2023-08-03 06:40] VITALS: PULSE 55; RESP 12; O2SAT 98
[2023-08-03] MEDS ORDERED: SODIUM CHLORIDE 0.9% 1,000 ML IV ONE ×2 (07:00)
[2023-08-03] MEDS ORDERED: MORPHINE SULFATE 4 MG/ML SYR/VIAL IV ONE (07:00)
[2023-08-03] MEDS ORDERED: ONDANSETRON HCL 4 MG/2 ML VIAL IV ONE ×2 (07:00→17:00)
[2023-08-03 07:43] LABS: Basophils # (auto) 0 10 ^3/uL (0-0.2); Basophils % (auto) 0.3 % (0.0-2.0); Eosinophils # (auto) 0 10 ^3/uL (0-0.8); Eosinophils % (auto) 0.2 % (0.0-7.0); Hematocrit 43.2 % (41.0-53.0); Hemoglobin 14.9 g/dL (13.5-17.5); Lymphocytes # (auto) 0.8 10 ^3/uL (0.4-5.4); Lymphocytes % (auto) 6.5 % (10.0-50.0); Mean Corpuscular Hemoglobin 30.3 pg (28.0-32.0); Mean Corpuscular Hgb Conc. 34.6 g/dL (32.0-36.0); Mean Corpuscular Volume 87.8 fL (80.0-100.0); Monocytes # (auto) 0.3 10 ^3/uL (0-1.3); Monocytes % (auto) 2.7 % (0.0-12.0); Neutrophils # (auto) 10.8 10 ^3/uL (1.6-8.6); Neutrophils % (auto) 90.3 % (37.0-80.0); Nucleated Red Blood Cells % 0.1 %; Red Blood Cells 4.92 10^6/uL (4.5-5.90); Red Cell Distribution Width 13.2 % (11.8-14.3)
[2023-08-03 08:37] LABS: Alanine Aminotransferase 26 U/L (7-40); Albumin 4.7 g/dL (3.2-4.8); Alkaline Phosphatase 73 U/L (46-116); Aspartate Aminotransferase 16 U/L (13-40); BUN/Creatinine Ratio 15.6 (10.0-20.0); Bilirubin, Total 1.1 mg/dL (0.2-1.0); Blood Urea Nitrogen 14 mg/dL (9-23); Calcium 9.7 mg/dL (8.5-10.1); Carbon Dioxide 24 mmol/L (20-30); Glucose 138 mg/dL (74-106); Total Protein 7.5 g/dL (5.7-8.2)
[2023-08-03 08:53] LABS: Chloride 108 mmol/L (98-107); Potassium 4.1 mmol/L (3.5-5.1)
[2023-08-03 08:54] LABS: Anion Gap 10 (5-15); Sodium 142 mmol/L (136-145)
[2023-08-03 09:19] VITALS: PULSE 53; RESP 18; O2SAT 96
[2023-08-03] MEDS ORDERED: cefTRIAXone 1GM/50ML D5W 50 ML IV ONE (10:00)
[2023-08-03] MEDS ORDERED: metroNIDAZOLE 500MG/100ML 100 ML IV ONE (10:00)
[2023-08-03 11:36] LABS: Urine Bacteria NONE SEEN /hpf (None Seen); Urine Blood Negative /uL (Negative); Urine Clarity Clear (Clear); Urine Color Yellow (Yellow); Urine Mucus FEW (None Seen); Urine Protein, UAD TRACE (Negative); Urine Specific Gravity 1.029 (1.001-1.035); Urine Urobilinogen Normal (Negative); Urine WBC 3 /hpf (0 - 3)
[2023-08-03] MEDS ORDERED: PANTOPRAZOLE 40 MG/10 ML VIAL INJ IV ONE (12:00)
[2023-08-03] MEDS ORDERED: ACETAMINOPHEN 325 MG TAB PO PRN (12:00)
[2023-08-03] MEDS: SODIUM CHLORIDE 0.9% 1,000 ML IV SCH (12:13)
[2023-08-03] MEDS: ENOXAPARIN SOD 40 MG/0.4 ML SYRINGE SC SCH ×2 (12:20→22:13)
[2023-08-03 12:51] LABS: Triglycerides 59 mg/dL (< 150)
[2023-08-03 12:52] LABS: LDL Cholesterol 82 mg/dL (< 100)
[2023-08-03 12:53] LABS: Cholesterol 127 mg/dL (< 200); HDL Cholesterol 42 mg/dL (40-59)
[2023-08-03 13:21] LABS: Lipase 39 U/L (12-53)
[2023-08-03] MEDS: MORPHINE SULFATE INJ 2 MG/ml SYRG IV PRN ×2 (17:11→23:17)
[2023-08-03] MEDS: SUCRALFATE 1 GM TAB PO SCH ×2 (17:12→22:13)
[2023-08-03] MEDS: metroNIDAZOLE 500MG/100ML 100 ML IV SCH (18:08)
[2023-08-03] MEDS: DICYCLOMINE HCL 10 MG CAP PO SCH ×2 (18:08→22:13)
[2023-08-03] MEDS ORDERED: ONDANSETRON HCL 4 MG/2 ML VIAL IV PRN (18:30)
[2023-08-03 19:30] VITALS: PULSE 48; RESP 16; O2SAT 92
[2023-08-04] MEDS: metroNIDAZOLE 500MG/100ML 100 ML IV SCH ×3 (02:04→18:53)
[2023-08-04] MEDS: SODIUM CHLORIDE 0.9% 1,000 ML IV SCH ×4 (03:01→21:20)
[2023-08-04 05:10] LABS: Basophils # (auto) 0 10 ^3/uL (0-0.2); Basophils % (auto) 0.2 % (0.0-2.0); Eosinophils # (auto) 0 10 ^3/uL (0-0.8); Hematocrit 39.9 % (41.0-53.0); Hemoglobin 13.7 g/dL (13.5-17.5); Lymphocytes # (auto) 1.1 10 ^3/uL (0.4-5.4); Lymphocytes % (auto) 9.1 % (10.0-50.0); Mean Corpuscular Hgb Conc. 34.2 g/dL (32.0-36.0); Mean Corpuscular Volume 87.8 fL (80.0-100.0); Monocytes # (auto) 0.5 10 ^3/uL (0-1.3); Monocytes % (auto) 4.5 % (0.0-12.0); Neutrophils # (auto) 10.3 10 ^3/uL (1.6-8.6); Neutrophils % (auto) 86.2 % (37.0-80.0); Red Blood Cells 4.55 10^6/uL (4.5-5.90); Red Cell Distribution Width 13.2 % (11.8-14.3); White Blood Cell 11.9 10^3/uL (4.4-10.8)
[2023-08-04 05:29] LABS: Alanine Aminotransferase 22 U/L (7-40); Albumin 3.9 g/dL (3.2-4.8); Alkaline Phosphatase 69 U/L (46-116); Anion Gap 4 (5-15); Aspartate Aminotransferase < 8 U/L (13-40); Bilirubin, Total 0.6 mg/dL (0.2-1.0); Blood Urea Nitrogen 15 mg/dL (9-23); Calcium 8.7 mg/dL (8.7-10.4); Carbon Dioxide 29 mmol/L (20-30); Chloride 108 mmol/L (98-107); Glucose 108 mg/dL (74-106); Potassium 4.4 mmol/L (3.5-5.1); Sodium 141 mmol/L (136-145)
[2023-08-04] MEDS: SUCRALFATE 1 GM TAB PO SCH ×4 (06:15→22:00)
[2023-08-04] MEDS: DICYCLOMINE HCL 10 MG CAP PO SCH ×4 (06:15→23:05)
[2023-08-04] MEDS: PANTOPRAZOLE 40 MG/10 ML VIAL INJ IV SCH (09:15)
[2023-08-04] MEDS: ENOXAPARIN SOD 40 MG/0.4 ML SYRINGE SC SCH ×2 (09:16→22:00)
[2023-08-04] MEDS: cefTRIAXone 1GM/50ML D5W 50 ML IV SCH (09:16)
[2023-08-04 10:57] VITALS: PULSE 60; RESP 18; O2SAT 95
[2023-08-05] MEDS: metroNIDAZOLE 500MG/100ML 100 ML IV SCH ×2 (02:25→10:00)
[2023-08-05] MEDS: SODIUM CHLORIDE 0.9% 1,000 ML IV SCH (05:40)
[2023-08-05 06:44] VITALS: TEMP 98.6
[2023-08-05] MEDS: SUCRALFATE 1 GM TAB PO SCH ×2 (07:00→11:30)
[2023-08-05] MEDS: cefTRIAXone 1GM/50ML D5W 50 ML IV SCH ×2 (09:00→09:53)
[2023-08-05] MEDS: DICYCLOMINE HCL 10 MG CAP PO SCH ×2 (09:52→12:00)
[2023-08-05] MEDS: PANTOPRAZOLE 40 MG/10 ML VIAL INJ IV SCH (10:00)
[2023-08-05] MEDS: ENOXAPARIN SOD 40 MG/0.4 ML SYRINGE SC SCH (10:00)
[2023-08-05 10:38] VITALS: PULSE 71; RESP 20; O2SAT 96
[2023-08-05 11:42] VITALS: BP 122/64; PULSE 76; RESP 18; O2SAT 99
== END 2023-08-05 12:15 | disposition left against medical advice (07) | DRG 249 ==
LOC: EDBD 06:04 → ER 06:04 → OVERFLOW 11:56
PROVIDERS: ADMIT Nurse Practitioner Family; ATTEND Internal Medicine
DX: K52.9 Noninfective gastroenteritis and colitis, unspecified (principal); F33.2 Major depressive disorder, recurrent severe without psychotic features; R45.851 Suicidal ideations; E66.01 Morbid (severe) obesity due to excess calories; F17.210 Nicotine dependence, cigarettes, uncomplicated; Z53.29 Procedure and treatment not carried out because of patient's decision for other reasons; F41.9 Anxiety disorder, unspecified; I10 Essential (primary) hypertension; Z68.43 Body mass index [BMI] 50.0-59.9, adult; Z91.51 Personal history of suicidal behavior; Z71.3 Dietary counseling and surveillance
CPT/HCPCS: 36415; 71045; 74176; 80053; 80061; 81001; 83036; 83605; 83690; 84443; 85025; 87040; 93005; C9113; G0378; J0696; J2405; J3490

== ENCOUNTER 2023-08-10 11:51 | Emergency (ER) | payer MEDICAID ==
[~2023-08-10] VITALS: Ht 172.7 cm; Wt 158.2 kg
[2023-08-10 12:22] VITALS: TEMP 98.8
[2023-08-10] MEDS ORDERED: MORPHINE SULFATE 4 MG/ML SYR/VIAL IV ONE (12:30)
[2023-08-10] MEDS ORDERED: SODIUM CHLORIDE 0.9% 1,000 ML IVB ONE (12:30)
[2023-08-10] MEDS ORDERED: PANTOPRAZOLE 40 MG/10 ML VIAL INJ IV ONE (12:30)
[2023-08-10] MEDS ORDERED: PROCHLORPERAZINE EDISYLATE 5 MG/ML 2ML VIAL IV ONE (12:30)
[2023-08-10 13:01] LABS: Alanine Aminotransferase 46 U/L (7-40); Albumin 4.6 g/dL (3.2-4.8); Alkaline Phosphatase 66 U/L (46-116); Anion Gap 7 (5-15); Aspartate Aminotransferase 27 U/L (13-40); BUN/Creatinine Ratio 10.3 (10.0-20.0); Blood Urea Nitrogen 9 mg/dL (9-23); Calcium 9.5 mg/dL (8.5-10.1); Carbon Dioxide 26 mmol/L (20-30); Chloride 106 mmol/L (98-107); Glucose 122 mg/dL (74-106); Potassium 3.8 mmol/L (3.5-5.1); Sodium 139 mmol/L (136-145)
[2023-08-10 13:02] LABS: Bilirubin, Total 1.2 mg/dL (0.2-1.0); Total Protein 7.3 g/dL (5.7-8.2)
[2023-08-10 13:10] LABS: Basophils # (auto) 0 10 ^3/uL (0-0.2); Basophils % (auto) 0.2 % (0.0-2.0); Eosinophils # (auto) 0 10 ^3/uL (0-0.8); Hematocrit 44.7 % (41.0-53.0); Hemoglobin 15.2 g/dL (13.5-17.5); Lymphocytes # (auto) 0.6 10 ^3/uL (0.4-5.4); Mean Corpuscular Volume 88.4 fL (80.0-100.0); Monocytes # (auto) 0.3 10 ^3/uL (0-1.3); Monocytes % (auto) 2.8 % (0.0-12.0); Neutrophils # (auto) 9.3 10 ^3/uL (1.6-8.6); Nucleated Red Blood Cells % 0.1 %; Red Blood Cells 5.06 10^6/uL (4.5-5.90); Red Cell Distribution Width 13.5 % (11.8-14.3); White Blood Cell 10.2 10^3/uL (4.4-10.8)
[2023-08-10] MEDS ORDERED: PANT40TA2 PO (14:35)
[2023-08-10] MEDS ORDERED: ZOFR4T PO (14:35)
[2023-08-10 15:50] VITALS: BP 125/66; PULSE 57; RESP 19; O2SAT 98
[2023-08-10 16:12] LABS: Lipase 42 U/L (12-53)
== END 2023-08-10 15:52 | disposition home or self-care (01) ==
LOC: ER 11:51
DX: F12.90 Cannabis use, unspecified, uncomplicated (principal); R11.11 Vomiting without nausea; R10.13 Epigastric pain; R19.7 Diarrhea, unspecified; I10 Essential (primary) hypertension; F41.9 Anxiety disorder, unspecified; F32.9 Major depressive disorder, single episode, unspecified; F17.210 Nicotine dependence, cigarettes, uncomplicated; Z79.899 Other long term (current) drug therapy
CPT/HCPCS: 36415; 74176; 80053; 83690; 85025; 96361; 96374; 96375; 99285; C9113; J0780; J2270; J7030

== ENCOUNTER 2024-01-13 04:08 | Inpatient (IN) | payer MEDICAID ==
[~2024-01-13] VITALS: Ht 172.7 cm; Wt 159.0 kg
[~2024-01-13 04:08] MED LIST changes: +PANT40TA2 PO; +ZOFR4T PO
[2024-01-13 04:30] VITALS: PULSE 66; RESP 18; O2SAT 95
[2024-01-13] MEDS: METOCLOPRAMIDE HCL 5MG/ml INJ 2ml VIAL ONE (05:15)
[2024-01-13] MEDS: METOCLOPRAMIDE HCL 5MG/ml INJ 2ml VIAL IM ONE (05:16)
[2024-01-13 06:13] LABS: Basophils # (auto) 0.1 10 ^3/uL (0-0.2); Basophils % (auto) 0.7 % (0.0-2.0); Eosinophils # (auto) 0 10 ^3/uL (0-0.8); Eosinophils % (auto) 0.1 % (0.0-7.0); Hematocrit 43.4 % (41.0-53.0); Lymphocytes # (auto) 0.6 10 ^3/uL (0.4-5.4); Lymphocytes % (auto) 5.8 % (10.0-50.0); Mean Corpuscular Hemoglobin 30.8 pg (28.0-32.0); Mean Corpuscular Hgb Conc. 34.5 g/dL (32.0-36.0); Mean Corpuscular Volume 89.5 fL (80.0-100.0); Monocytes # (auto) 0.3 10 ^3/uL (0-1.3); Monocytes % (auto) 3.2 % (0.0-12.0); Neutrophils # (auto) 9.9 10 ^3/uL (1.6-8.6); Neutrophils % (auto) 90.2 % (37.0-80.0); Nucleated Red Blood Cells % 0.1 %; Red Blood Cells 4.85 10^6/uL (4.5-5.90); Red Cell Distribution Width 13.5 % (11.8-14.3)
[2024-01-13 06:33] LABS: Alanine Aminotransferase 24 U/L (7-40); Albumin 4.6 g/dL (3.2-4.8); Alkaline Phosphatase 66 U/L (46-116); Anion Gap 6 (5-15); Aspartate Aminotransferase 16 U/L (13-40); BUN/Creatinine Ratio 16.5 (10.0-20.0); Blood Urea Nitrogen 14 mg/dL (9-23); Calcium 9.7 mg/dL (8.7-10.4); Carbon Dioxide 28 mmol/L (20-30); Chloride 108 mmol/L (98-107); Glucose 146 mg/dL (74-106); Lipase 26 U/L (12-53); Potassium 4.1 mmol/L (3.5-5.1); Sodium 142 mmol/L (136-145); Total Protein 7.2 g/dL (5.7-8.2)
[2024-01-13] MEDS: ONDANSETRON HCL 4 MG/2 ML VIAL IV ONE (07:50)
[2024-01-13] MEDS: MORPHINE SULFATE 4 MG/ML SYR/VIAL IV ONE (07:50)
[2024-01-13] MEDS: SODIUM CHLORIDE 0.9% 1,000 ML IV ONE ×2 (07:50)
[2024-01-13 09:24] VITALS: PULSE 58; RESP 20; O2SAT 96
[2024-01-13] MEDS: DICYCLOMINE HCL 10 MG CAP PO ONE (12:00)
[2024-01-13] MEDS ORDERED: DOCUSATE SOD 100 MG CAP PO PRN (12:00)
[2024-01-13] MEDS: SODIUM CHLORIDE 0.9% 1,000 ML IV SCH (12:00)
[2024-01-13] MEDS ORDERED: METOCLOPRAMIDE HCL 5MG/ml INJ 2ml VIAL IV PRN (12:00)
[2024-01-13] MEDS: MORPHINE SULFATE INJ 2 MG/ml SYRG IV PRN (13:03)
[2024-01-13] MEDS: DICYCLOMINE HCL (10MG/ML) 2 ML AMPULE IM ONE (13:03)
[2024-01-13] MEDS: METOCLOPRAMIDE HCL 5MG/ml INJ 2ml VIAL IV ONE (13:03)
[2024-01-13 13:47] LABS: Amphetamine Screen, Urine Neg (NEGATIVE); Barbiturate Scree,Urine Neg (NEGATIVE); Benzodiazephine Screen, Urine Neg (NEGATIVE); Cannabinoid Screen, Urine Pos (NEGATIVE); Cocaine Screen, Urine Neg (NEGATIVE); Opiate Scree,Urine Pos (NEGATIVE); Phencyclidine Screen, Urine Neg (NEGATIVE)
[2024-01-13] MEDS: metroNIDAZOLE 500MG/100ML 100 ML IV SCH (14:00)
[2024-01-13] MEDS: SUCRALFATE 1 GM TAB PO SCH (17:00)
[2024-01-13] MEDS ORDERED: hydrALAZINE HCL 20 MG/ML VL IV PRN (18:30)
[2024-01-13 19:31] LABS: Magnesium 1.9 mg/dL (1.6-2.6)
[2024-01-13 19:45] VITALS: PULSE 60; RESP 15; O2SAT 100
[2024-01-13] MEDS: PANTOPRAZOLE 40 MG/10 ML VIAL INJ IV SCH (21:32)
[2024-01-14] MEDS: ONDANSETRON HCL 4 MG/2 ML VIAL IV PRN (01:09)
[2024-01-14 04:27] LABS: Basophils # (auto) 0 10 ^3/uL (0-0.2); Basophils % (auto) 0.1 % (0.0-2.0); Eosinophils # (auto) 0 10 ^3/uL (0-0.8); Hematocrit 39.3 % (41.0-53.0); Hemoglobin 13.5 g/dL (13.5-17.5); Lymphocytes # (auto) 1.1 10 ^3/uL (0.4-5.4); Lymphocytes % (auto) 9.9 % (10.0-50.0); Mean Corpuscular Hemoglobin 30.5 pg (28.0-32.0); Mean Corpuscular Hgb Conc. 34.3 g/dL (32.0-36.0); Mean Corpuscular Volume 89.1 fL (80.0-100.0); Monocytes # (auto) 0.6 10 ^3/uL (0-1.3); Monocytes % (auto) 5.7 % (0.0-12.0); Neutrophils # (auto) 9.3 10 ^3/uL (1.6-8.6); Neutrophils % (auto) 84.3 % (37.0-80.0); Red Blood Cells 4.41 10^6/uL (4.5-5.90); Red Cell Distribution Width 13.5 % (11.8-14.3); White Blood Cell 11.1 10^3/uL (4.4-10.8)
[2024-01-14 04:44] LABS: Alanine Aminotransferase 21 U/L (7-40); Albumin 4.1 g/dL (3.2-4.8); Alkaline Phosphatase 59 U/L (46-116); Calcium 8.9 mg/dL (8.5-10.1); Carbon Dioxide 27 mmol/L (20-30); Chloride 109 mmol/L (98-107); Glucose 106 mg/dL (74-106); Potassium 3.6 mmol/L (3.5-5.1)
[2024-01-14 04:45] LABS: Anion Gap 5 (5-15); Aspartate Aminotransferase 14 U/L (13-40); BUN/Creatinine Ratio 15.6 (10.0-20.0); Bilirubin, Total 0.9 mg/dL (0.2-1.0); Blood Urea Nitrogen 10 mg/dL (9-23); Sodium 141 mmol/L (136-145)
[2024-01-14 09:09] VITALS: PULSE 48
[2024-01-14] MEDS: cefTRIAXone 1GM/50ML D5W 50 ML IV SCH (09:14)
[2024-01-14] MEDS: ENOXAPARIN SOD 60 MG/0.6 ML SYRINGE SC SCH (09:14)
[2024-01-14 12:38] VITALS: BP 108/45; PULSE 53; RESP 19; TEMP 98; O2SAT 95
[2024-01-14 16:53] VITALS: BP 101/50; PULSE 52; RESP 19; TEMP 98.4; O2SAT 94
[2024-01-14 20:00] VITALS: PULSE 42; PULSE 46; RESP 20; O2SAT 93
[2024-01-14 22:06] VITALS: BP 97/62; PULSE 46; RESP 20; TEMP 98.2; O2SAT 93
[2024-01-15 05:00] VITALS: BP 140/68; PULSE 50; RESP 19; TEMP 98.7; O2SAT 97
[2024-01-15 08:00] VITALS: PULSE 46
[2024-01-15 08:58] LABS: Hepatitis B Surface Antigen Negative (Negative)
[2024-01-15 09:18] LABS: Hepatitis C Antibody Negative (Negative)
== END 2024-01-15 08:15 | disposition left against medical advice (07) | DRG 249 ==
LOC: EDBD 04:08 → ER 04:08 → OVERFLOW 13:39 → TELE-WESTW 01-14 08:30
PROVIDERS: ADMIT Nurse Practitioner Family; ATTEND Internal Medicine Pulmonary Disease
DX: A09 Infectious gastroenteritis and colitis, unspecified (principal); Z68.43 Body mass index [BMI] 50.0-59.9, adult; A05.9 Bacterial foodborne intoxication, unspecified; K29.70 Gastritis, unspecified, without bleeding; K44.9 Diaphragmatic hernia without obstruction or gangrene; K21.00 Gastro-esophageal reflux disease with esophagitis, without bleeding; I10 Essential (primary) hypertension; F12.90 Cannabis use, unspecified, uncomplicated; F41.9 Anxiety disorder, unspecified; F32.A Depression, unspecified; F17.210 Nicotine dependence, cigarettes, uncomplicated; E66.01 Morbid (severe) obesity due to excess calories; E78.5 Hyperlipidemia, unspecified; R00.1 Bradycardia, unspecified
CPT/HCPCS: 36415; 74176; 80053; 80061; 80307; 83036; 83690; 83735; 84443; 85025; 86803; 87340; 93005; 96361; 96372; 96374; 96375; C9113; G0378; J2405; J3490

== ENCOUNTER 2024-05-28 07:07 | Emergency (ER) | payer MEDICAID ==
[~2024-05-28] VITALS: Ht 172.7 cm; Wt 143.6 kg
[~2024-05-28 07:07] MED LIST changes: -DICY20TA PO; -PANT40T PO; -PANT40TA2 PO; -ZOFR4T PO
[2024-05-28 07:54] VITALS: BP 147/100; PULSE 86; RESP 18; TEMP 99.5; O2SAT 97
[2024-05-28] MEDS ORDERED: IBUP-1456 PO (08:05)
== END 2024-05-28 08:20 | disposition home or self-care (01) ==
LOC: ER 07:07
DX: S42.035A Nondisplaced fracture of lateral end of left clavicle, initial encounter for closed fracture (principal); I10 Essential (primary) hypertension; F41.9 Anxiety disorder, unspecified; F32.A Depression, unspecified; F17.210 Nicotine dependence, cigarettes, uncomplicated; F12.10 Cannabis abuse, uncomplicated; Z79.899 Other long term (current) drug therapy; W01.0XXA Fall on same level from slipping, tripping and stumbling without subsequent striking against object, initial encounter; Y93.89 Activity, other specified; Y92.89 Other specified places as the place of occurrence of the external cause; Y99.8 Other external cause status
CPT/HCPCS: 29105; 73030